=== PATIENT | male | born 1975 | race Caucasian/White ===

== ENCOUNTER → 2018-04-20 | Outpatient (CLI) | payer BC ==
[2018-04-20 15:26] LABS: BASO # 0.1 10^3/uL (0.0-0.2); BASO % 0.7 % (0.0-1.0); EOS # 0.2 10^3/uL (0.0-0.50); EOS % 1.5 % (0.0-3.0); HEMATOCRIT 45.7 % (42.0-52.0); HEMOGLOBIN 15.6 g/dl (13.5-17.5); LYMPH # 1.6 10^3/uL (1.5-4.5); LYMPH % 15.2 % (24.0-44.0); MEAN CORPUSCULAR HEMOGLOBIN 31.8 pg (27.0-33.0); MEAN CORPUSCULAR HGB CONC 34.1 g/dl (32.0-36.5); MEAN CORPUSCULAR VOLUME 93.1 fl (80.0-96.0); MONO # 0.9 10^3/uL (0.0-0.8); MONO % 8.2 % (0.0-5.0); NEUTROPHILS # 7.9 10^3/uL (1.8-7.7); NEUTROPHILS % 74.1 % (36.0-66.0); PLATELET COUNT, AUTOMATED 384 10^3/uL (150-450); RED BLOOD COUNT 4.91 10^6/uL (4.30-6.10); WHITE BLOOD COUNT 10.6 10^3/uL (4.0-10.0)
[2018-04-20 15:28] LABS: ALT/SGPT 30 U/L (12-78); BILIRUBIN,TOTAL 0.5 MG/DL (0.2-1.0); BLOOD UREA NITROGEN 16 MG/DL (7-18); CALCIUM LEVEL 9.2 MG/DL (8.5-10.1); CARBON DIOXIDE LEVEL 24 MEQ/L (21-32); CHLORIDE LEVEL 105 MEQ/L (98-107); CREATININE FOR GFR 1.06 MG/DL (0.70-1.30); GLOMERULAR FILTRATION RATE > 60.0 (>60); GLUCOSE, FASTING 103 MG/DL (70-100); POTASSIUM SERUM 4.6 MEQ/L (3.5-5.1); SODIUM LEVEL 137 MEQ/L (136-145); TOTAL PROTEIN 7.7 GM/DL (6.4-8.2)
== END ==
LOC: M WUC 13:29
PROVIDERS: ATTEND Physician Assistant
DX: L03.113 Cellulitis of right upper limb (principal)

== ENCOUNTER → 2020-10-21 | Outpatient (REF) | payer OTHER, MEDICAID ==
[2020-10-22 12:41] LABS: HEMATOCRIT 42.7 % (42.0-52.0); MEAN CORPUSCULAR HEMOGLOBIN 30.4 pg (27.0-33.0); MEAN CORPUSCULAR HGB CONC 32.8 g/dl (32.0-36.5); MEAN CORPUSCULAR VOLUME 92.8 fl (80.0-96.0); PLATELET COUNT, AUTOMATED 393 10^3/uL (150-450); WHITE BLOOD COUNT 9.2 10^3/uL (4.0-10.0)
[2020-10-22 13:07] LABS: BLOOD UREA NITROGEN 14 MG/DL (7-18); CALCIUM LEVEL 9.5 MG/DL (8.5-10.1); CARBON DIOXIDE LEVEL 26 MEQ/L (21-32); CHLORIDE LEVEL 103 MEQ/L (98-107); CREATININE FOR GFR 0.84 MG/DL (0.70-1.30); GLOMERULAR FILTRATION RATE > 60.0 (>60); GLUCOSE, FASTING 92 MG/DL (70-100); POTASSIUM SERUM 4.8 MEQ/L (3.5-5.1); SODIUM LEVEL 134 MEQ/L (136-145)
[2020-10-22 13:08] LABS: ALBUMIN 3.6 GM/DL (3.2-5.2); ALT/SGPT 31 U/L (12-78); BILIRUBIN,TOTAL 0.7 MG/DL (0.2-1.0); TOTAL PROTEIN 8.3 GM/DL (6.4-8.2)
== END ==
LOC: M SFHCCLAY 14:50
PROVIDERS: ATTEND Family Medicine
DX: Z87.19 Personal history of other diseases of the digestive system (principal); Z87.898 Personal history of other specified conditions

== ENCOUNTER → 2020-10-29 | Outpatient (REF) | payer OTHER, MEDICAID ==
[2020-10-29 18:04] LABS: % LABILE ALKALINE PHOSPHATASE 51.8 %
== END ==
LOC: M SFHCCLAY 13:42
PROVIDERS: ATTEND Family Medicine
DX: R74.8 Abnormal levels of other serum enzymes (principal)

== ENCOUNTER → 2020-12-01 | Outpatient (CLI) | payer OTHER ==
[~2020-12-01] MED LIST: DOCU100C16; ELIQ5TAB PO; FAMO20TA5; SUCR1TAB56; TIZA2TA
== END ==
LOC: M CLY 10:59
PROVIDERS: ATTEND Family Medicine
DX: M43.07 Spondylolysis, lumbosacral region (principal)

== ENCOUNTER → 2020-12-05 | Outpatient (CLI) | payer OTHER ==
--- NOTE | 2020-12-05 12:29 | REP ---
INDICATION: SPONDYLOLYSIS OF LUMBAR. COMPARISON: None. TECHNIQUE: Five views FINDINGS: No fractures. Marked narrowing L3-4 disc space endplate sclerotic changes. Facet arthropathy at the lower levels. 5 mm retrolisthesis L4 on L5 and 3 mm retrolisthesis L2 on L3-L3 on L4. IMPRESSION: Marked narrowing L3-4 disc space. Facet arthropathy. Multi level micro listhesis. No fracture. <Electronically signed by Chapin Lambert > 12/05/20 [id number]
--- NOTE | 2020-12-05 12:39 | REPVR ---
PROCEDURE INFORMATION: Exam: CT Lumbar Spine Without Contrast Exam date and time: 12/05/2020 11:49 AM Age: 45 years old Clinical indication: Low back pain; Additional info: Spondylosis lumbar region TECHNIQUE: Imaging protocol: Computed tomography images of the lumbar spine without contrast. Radiation optimization: All CT scans at this facility use at least one of these dose optimization techniques: automated exposure control; mA and/or kV adjustment per patient size (includes targeted exams where dose is matched to clinical indication); or iterative reconstruction. COMPARISON: CR SPINE LS COMPLETE 12/01/2020 11:08 AM FINDINGS: Vertebrae: Straightening of the lumbar lordosis. No acute fracture seen. Minimal, chronic appearing anterior wedging of L1 and L2. Chronic L3 pars defects. L3-L4 disc height loss with prominent anterior endplate sclerosis and erosions. Height loss of the adjacent anterior aspects of the L3 and L4 vertebral bodies. There is paravertebral edema extending into the left retroperitoneal region. No significant disc height loss elsewhere. There are lower thoracic and upper lumbar endplate Schmorl's nodes. L1-L2: No significant disc protrusion. No severe spinal canal stenosis. No significant neural foraminal narrowing. L2-L3: Mild disc bulge, facet arthropathy and ligamentum flavum buckling. No significant central spinal canal stenosis. Mild bilateral neural foraminal stenoses. L3-L4: Diffuse disc bulge, facet arthropathy and ligamentum flavum buckling. Central spinal canal stenosis is mild. No large compressive phlegmon identified in the spinal canal. Neural foraminal stenoses are moderate. L4-L5: Mild disc bulge, facet arthropathy and ligamentum flavum buckling. The central spinal canal remains patent. Mild bilateral neural foraminal stenoses. L5-S1: Mild diffuse disc bulge as well as mild to moderate facet arthropathy. Suspect a component of left foraminal disc protrusion. The central spinal canal is patent. Severe left and [id number] neural foraminal stenoses. Kidneys and ureters: The kidneys demonstrate nonobstructing calculi. Lymph nodes: Retroperitoneal lymph nodes appear increased in number. IMPRESSION: 1. Findings concerning for active L3-L4 discitis osteomyelitis. Please correlate with the clinical scenario. Suggest MRI lumbar spine without and with contrast for further characterization. 2. Moderate bilateral neural foraminal stenoses at L3-L4. 3. Severe left neural foraminal stenosis at L5-S1. 4. Chronic L3 pars defects. Electronically signed by: Elina Ayala On 12/05/2020 12:38:44 PM
== END ==
LOC: M RAD 11:38
PROVIDERS: ATTEND Family Medicine
DX: M43.16 Spondylolisthesis, lumbar region (principal); M48.061 Spinal stenosis, lumbar region without neurogenic claudication; M48.07 Spinal stenosis, lumbosacral region; M51.26 Other intervertebral disc displacement, lumbar region; M51.27 Other intervertebral disc displacement, lumbosacral region

== ENCOUNTER 2020-12-07 15:56 | Emergency (ER) | payer OTHER ==
[~2020-12-07] VITALS: Ht 172.7 cm; Wt 58.7 kg
[2020-12-07] MEDS ORDERED: TIZA2TA (18:40)
[2020-12-07] MEDS ORDERED: DOCU100C16 (18:40)
[2020-12-07] MEDS ORDERED: SUCR1TAB56 (18:40)
[2020-12-07] MEDS ORDERED: ELIQ5TAB PO (18:40)
[2020-12-07] MEDS ORDERED: FAMO20TA5 (18:40)
[2020-12-07 18:51] LABS: BASO # 0.1 10^3/uL (0.0-0.2); BASO % 0.7 % (0.0-1.0); EOS # 0.1 10^3/uL (0.0-0.5); EOS % 0.8 % (0.0-3.0); HEMATOCRIT 43.8 % (42.0-52.0); HEMOGLOBIN 14.2 g/dl (13.5-17.5); LYMPH # 1.9 10^3/uL (1.5-5.0); LYMPH % 18.1 % (24.0-44.0); MEAN CORPUSCULAR HEMOGLOBIN 28.9 pg (27.0-33.0); MEAN CORPUSCULAR HGB CONC 32.4 g/dl (32.0-36.5); MONO # 0.6 10^3/uL (0.0-0.8); MONO % 5.8 % (2.0-8.0); NEUTROPHILS # 7.6 10^3/uL (1.5-8.5); NEUTROPHILS % 74.3 % (36.0-66.0); PLATELET COUNT, AUTOMATED 336 10^3/uL (150-450); RED BLOOD COUNT 4.92 10^6/uL (4.30-6.10); WHITE BLOOD COUNT 10.3 10^3/uL (4.0-10.0)
[2020-12-07 19:10] LABS: ERYTHROCYTE SEDIMENTATION RATE 32 mm/hr (0-15)
[2020-12-07] MEDS ORDERED: PROHANCE 279.3MG/ML 15ML VIAL As Ordered ONE (20:31)
[2020-12-07 20:52] VITALS: BP 131/69
--- NOTE | 2020-12-07 22:02 | REPVR ---
PROCEDURE INFORMATION: Exam: MR Lumbar Spine Without and With Contrast Exam date and time: 12/07/2020 5:59 PM Age: 45 years old Clinical indication: Low back pain; Additional info: Possible disciitis noted l3-l4 on non-contrasted CT TECHNIQUE: Imaging protocol: Multiplanar magnetic resonance images of the lumbar spine without and with intravenous contrast. Contrast material: PROHANCE; Contrast volume: 11 ml; Contrast route: INTRAVENOUS (IV); COMPARISON: 1. CT Spine, lumbar w/o contrast 2020-12-05 11:48 2. CR Spine,LS wBENDING MIN 6 VIEWS 2020-12-05 12:05 FINDINGS: L3-L4 marrow edema, enhancement, and cortical endplate erosion with severe disc height loss. Mild paravertebral thickening and enhancement. L3-L4 intervertebral disc enhancement. Trace ventral epidural enhancement or phlegmon. No epidural fluid collections. Incidental filum terminalis lipoma. Normal distal spinal cord. Minimal scattered disc bulges greatest at L3-L4 with mild moderate spinal and foraminal stenosis. IMPRESSION: L3-L4 discitis and osteomyelitis with mild endplate erosion. No epidural fluid collections, though perhaps trace ventral epidural phlegmon at the disc level. Electronically signed by: Cuco Tena On 12/07/2020 22:02:02 PM
--- NOTE | 2020-12-07 22:03 | REPVR ---
PROCEDURE INFORMATION: Exam: MR Thoracic Spine Without and With Contrast Exam date and time: 12/07/2020 5:59 PM Age: 45 years old Clinical indication: Pain; Other: Lbp; Additional info: Possible disciitis noted l3-l4 on non-contrasted CT TECHNIQUE: Imaging protocol: Multiplanar magnetic resonance images of the thoracic spine without and with contrast. Contrast material: PROHANCE; Contrast volume: 11 ml; Contrast route: INTRAVENOUS (IV); COMPARISON: 1. CR Spine,LS wBENDING MIN 6 VIEWS 2020-12-05 12:05 2. CR SPINE LS COMPLETE 2020-12-01 11:08 FINDINGS: Vertebrae: No abnormal vertebral or spinal enhancement. Normal thoracic kyphosis, vertebral body heights, and alignments. Several tiny scattered Schmorl's node endplate cavities. Spinal cord: Normal signal. No cord compression. Discs/Spinal canal/Neural foramina: Scattered small disc bulge/protrusions most prominent at T5-T6, T7-T12. No significant spinal or foraminal stenosis. Soft tissues: Unremarkable. IMPRESSION: No acute abnormality. Electronically signed by: Cuco Tena On 12/07/2020 22:03:23 PM
--- NOTE | 2020-12-08 12:51 | ED PDOC ---
Post-Departure Follow-Up mri ls spine fxed to dr marinelli for fu. pt left ama . Jc Oconnell MD Dec 08, 2020 12:50
== END 2020-12-07 22:29 | disposition left against medical advice (07) ==
LOC: M ED 15:56
DX: M46.26 Osteomyelitis of vertebra, lumbar region (principal); M46.46 Discitis, unspecified, lumbar region; M48.07 Spinal stenosis, lumbosacral region; Z87.19 Personal history of other diseases of the digestive system; Z79.01 Long term (current) use of anticoagulants; Z79.899 Other long term (current) drug therapy
CPT/HCPCS: 36415; 72157; 72158; 80047; 85025; 85652; 86140; 99284; A9576

== ENCOUNTER → 2020-12-24 | Outpatient (CLI) | payer OTHER ==
[~2020-12-24] MED LIST changes: +LIQUID POLIBAR PLUS 105% w/v 1900ML BTL As Ordered ONE
--- NOTE | 2020-12-24 17:52 | REP ---
INDICATION: DIVERTICULOSIS. COMPARISON: None TECHNIQUE: The procedure was performed by Bethany Ford [facility], under the direct supervision of Dr. Fields. The images were reviewed with Dr. Dr. Fields. Liquid barium and air were instilled into the colon and retrograde flow of the barium air mixture. FINDINGS: The tin whiz machine operator film shows no organomegaly, or pathological masses. The intestinal gas pattern is unremarkable. The colon is normal in position and contour. There are multiple diverticula of the sigmoid and left colon. There is a small walled off perforated diverticulum in the sigmoid colon. The descending colon never distended adequately limiting the evaluation of the sigmoid and the left colon. Intermittent spasm of the sigmoid and descending colon was visualized with diffuse mucosal hypertrophy. This could be due to chronic diverticulitis, but underlying pathology cannot be excluded. There is free flow of contrast to the cecum, and reflux into the terminal ileum. The appendix is visualized. . IMPRESSION: 1. Diverticula of the sigmoid and left colon. 2. Small walled off perforated diverticulum in the sigmoid colon. 3. Limited evaluation of the descending and sigmoid colon, due to spasm as well as lack of adequate distension. This could be due to chronic diverticulitis. An underlying mass cannot be excluded. A colonoscopy could be considered for further evaluation. 0.5 minutes of fluoroscopy time was utilized for this procedure. Some fluoroscopic images are performed with last image hold technology. These images require no additional radiation <Electronically signed by Bethany Ford > 12/24/20 [id number] <Electronically signed by Ronnie Fields > 12/24/20 [id number]
== END ==
LOC: M RAD 08:22
PROVIDERS: ATTEND Surgery
DX: K57.32 Diverticulitis of large intestine without perforation or abscess without bleeding (principal)

== ENCOUNTER → 2021-01-20 | Outpatient (CLI) | payer OTHER ==
[~2021-01-20] MED LIST changes: +GASTROGRAFIN SOLUTION 30ML (Q9963) As Ordered ONE; +ISOVUE-370 76% 100ML VIAL As Ordered ONE; -LIQUID POLIBAR PLUS 105% w/v 1900ML BTL As Ordered ONE
--- NOTE | 2021-01-21 06:25 | REP ---
INDICATION: DIVTRCLI OF LG INT W/ PERFORATION / ABCESS. COMPARISON: None TECHNIQUE: Axial contrast-enhanced images from the lung bases to the pubic symphysis using oral and 100 cc Isovue 370 intravenous contrast material. Coronal and sagittal reformations obtained along with precontrast images of the abdomen. This CT examination was performed using the following dose reduction techniques: Automated exposure control, adjustment of mA and/or kv according to the patient's size, and the use of iterative reconstruction technique. FINDINGS: There is moderate to significant and somewhat irregular circumferential mucosal thickening involving the entire sigmoid colon. Findings suggest an underlying infectious/inflammatory colitis although underlying pathology including malignancy cannot be excluded as well. No associated fluid collection/abscess. No free air to suggest perforation. Small bowel and remainder of the large bowel appear otherwise normal. Liver, spleen, pancreas, gallbladder, bilateral adrenal glands and kidneys are normal. Pelvis demonstrates normal bladder and age-appropriate prostate/seminal vesicles. No ascites. No free air. No intraperitoneal or retroperitoneal adenopathy. Abdominal aorta and vasculature appear normal. Musculoskeletal structures are intact and without acute osseous abnormality. IMPRESSION: Mucosal thickening involving the entire sigmoid colon. Differential diagnosis includes infectious/inflammatory colitis and less likely diverticulitis. Underlying malignancy cannot be excluded and follow-up colonoscopy should be considered. <Electronically signed by Martin Rainey > 01/21/21 [id number]
== END ==
LOC: M RAD 14:19
PROVIDERS: ATTEND Surgery
DX: K57.20 Diverticulitis of large intestine with perforation and abscess without bleeding (principal)
CPT/HCPCS: 74178; Q9963; Q9967